=== PATIENT | female | born 1990 | race Caucasian/White ===

== ENCOUNTER 2018-08-05 15:58 | Emergency (ER) | payer OTHER, SELFPAY ==
[2018-08-05 15:58] VITALS: BP 126/80; PULSE 91; RESP 16; TEMP 36.7; O2SAT 99; BMI 23.1
--- NOTE | 2018-08-05 16:19 | US_ITS ---
STUDY: FIRST TRIMESTER OBSTETRICAL ULTRASOUND REASON FOR EXAM: Female, 27 years old. Threatened LMP: 06/10/2018 TECHNIQUE: Transvaginal real-time exam with soriano scale image documentation. TECHNICAL QUALITY: Adequate. PRIOR ULTRASOUND: None. FINDINGS: There is no demonstrated intrauterine gestational sac. The estimated gestation age (EGA) by LMP is 8 weeks, 0 days. The estimated date of delivery (GERMAINE) by LMP is 03/17/2019. The uterus measures 9.4 x 5.8 x 4.7 cm. There is no demonstrated uterine fibroid. Nonspecific fluid of the endocervix. Thickened endometrium. The right ovary measures 3.7 x 2.5 x 2.4 cm. There is no right ovarian cyst. There is no visualized right adnexal mass or complex lesion. The left ovary measures 4.5 x 2.7 x 2.7 cm. There is no left ovarian cyst. There is no visualized left adnexal mass or complex lesion. There is no fluid in the cul de sac. US/Transvaginal w/Preg US IMPRESSION: There is no identified intrauterine gestational sac. Thickened endometrium. Small amount of nonspecific fluid in the endocervix. Normal ovaries bilaterally. No additional adnexal masses or free fluid. Electronically Signed: Jennifer Nicholas MD at 17:42 EDT , Service support ,
--- NOTE | 2018-08-05 16:22 | ED.VISSUMM ---
- ER Visit Summary Date of Service: 08/05/18 Chief Complaint: Vaginal bleeding History of Present Illness: The patient is a 27 F who is at 8 weeks with vaginal bleeding. It started at spotting now is getting worse she passed one big piece of tissue prior to arrival. Physical Examination: Moist mucous membranes Regular rate and rhythm without any obvious murmurs Clear lungs bilaterally speaking in full sentences without any obvious respiratory distress Abdomen soft and nontender no guarding or rebound : deffered Moves all extremities without any difficulty or pain. Alert oriented ?3 with no gross focal deficit Emergency Department Course and Treatment: Unfortunately the ultrasound shows no intrauterine , patient is now at a complete AB. She is Rh-, RhoGam was ordered. She will otherwise follow-up with her supervisor tumbling and rolling. Disposition: Discharge stable condition Impression: Complete AB This note was generated with [employer] dictation software. It may contain incorrect words, spelling, and punctuation that were not noted in review of the chart prior to signing ED Disposition - Plan for ED Patient: Disposition: Home or Assisted Living Instructions: ED Miscarriage Completed Referrals: Care Physician,No Primary [Primary Care Provider] - 3-5 Days
--- NOTE | 2018-08-05 16:29 | ED.DCSUM_ITS ---
- ER Visit Summary Date of Service: 08/05/18 Chief Complaint: Vaginal bleeding History of Present Illness: The patient is a 27 F who is at 8 weeks with vaginal bleeding. It started at spotting now is getting worse she passed one big piece of tissue prior to arrival. Physical Examination: Moist mucous membranes Regular rate and rhythm without any obvious murmurs Clear lungs bilaterally speaking in full sentences without any obvious respiratory distress Abdomen soft and nontender no guarding or rebound : deffered Moves all extremities without any difficulty or pain. Alert oriented ?3 with no gross focal deficit Emergency Department Course and Treatment: Unfortunately the ultrasound shows no intrauterine , patient is now at a complete AB. She is Rh-, RhoGam was ordered. She will otherwise follow-up with her pump rebuilder. Disposition: Discharge stable condition Impression: Complete AB This note was generated with [employer] dictation software. It may contain incorrect words, spelling, and punctuation that were not noted in review of the chart prior to signing ED Disposition - Plan for ED Patient: Disposition: Home or Assisted Living Instructions: ED Miscarriage Completed Referrals: Care Physician,No Primary [Primary Care Provider] - 3-5 Days
[2018-08-05 18:49] VITALS: BP 121/83; PULSE 75; RESP 18; O2SAT 100
--- NOTE | 2018-08-05 18:57 | ED.RN ---
forget me not packet given to pt and . support provided.
== END 2018-08-05 19:00 | disposition home or self-care (01) ==
PROVIDERS: Emergency Provider Emergency Medicine
DX: O03.9 Complete or unspecified spontaneous abortion without complication (principal)
CPT/HCPCS: 76817; 86850; 86900; 90384; 96372; 99282; J2790

== ENCOUNTER → 2018-08-05 | Outpatient (CLI) | payer OTHER, SELFPAY ==
[2018-08-05 13:15] LABS: hCG Titer Quant., Serum 14326 mIU/mL (1-3)
== END | disposition home or self-care (01) ==
PROVIDERS: Referring Provider Obstetrics & Gynecology; Visit Provider Obstetrics & Gynecology
DX: O20.0 Threatened abortion (principal)
CPT/HCPCS: 36415; 84702

== ENCOUNTER → 2018-08-08 | Outpatient (CLI) | payer OTHER, SELFPAY ==
[2018-08-05 15:58] VITALS: BMI 23.1
[2018-08-08 11:52] LABS: hCG Titer Quant., Serum 1485 mIU/mL (1-3)
== END | disposition home or self-care (01) ==
LOC: PAVLAB 10:09
PROVIDERS: Visit Provider Obstetrics & Gynecology
DX: O20.0 Threatened abortion (principal)
CPT/HCPCS: 36415; 84702